=== PATIENT | female | born 1950 | race Hispanic/Latino ===

== ENCOUNTER → 2020-08-22 | Outpatient (CLI) | payer OTHER | END | disposition home or self-care (01) | LOC: SHCH 11:30 | PROVIDERS: ATTEND Internal Medicine | DX: R01.1 Cardiac murmur, unspecified (principal) | CPT/HCPCS: 93306; 93356 ==

== ENCOUNTER → 2021-07-29 | Outpatient (CLI) | payer OTHER | END | disposition home or self-care (01) | LOC: SHCH 08:21 | PROVIDERS: ATTEND Internal Medicine | DX: I08.3 Combined rheumatic disorders of mitral, aortic and tricuspid valves (principal); I11.9 Hypertensive heart disease without heart failure; E78.5 Hyperlipidemia, unspecified | CPT/HCPCS: 93306 ==

== ENCOUNTER → 2022-08-05 | Outpatient (CLI) | payer OTHER | END | disposition home or self-care (01) | LOC: SHCH 08:37 | PROVIDERS: ATTEND Internal Medicine | DX: I35.8 Other nonrheumatic aortic valve disorders (principal); I11.9 Hypertensive heart disease without heart failure; E78.5 Hyperlipidemia, unspecified | CPT/HCPCS: 93306 ==

== ENCOUNTER → 2024-07-18 | Outpatient (CLI) | payer OTHER ==
[~2024-07-18] MED LIST: IOHEXOL 350 MG/ML 100ML INFUS..BTL IV ONE
--- NOTE | 2024-07-18 13:30 | HMCIMG ---
CT OF THE CHEST WITH CONTRAST- CT Cardiac Angio co-interpretation This is done as part of the CT cardiac angiogram study. The interpretation of the coronary arteries will be done by vocational adviser in a separate report. History: over-read Comparison: none CT Dose Index (CTDI): 77.90 mGy Dose Length Product (DLP): 493.40 total mGy PROTOCOL: Examination is done at 2.5 millimeter volumetric acquisition after contrast administration with Isovue 370, 100 cc IV, without complications. Photography is done at 5 millimeter thick intervals for the thorax. The examination begins above the heart and therefore the lung apices are incompletely included. The rest of the left lung is included but the right lung is only included up to its middle third. The periphery of the right lung is not included in the study. FINDINGS: The visualized part of the airway is preserved. The bony and soft tissue structures of the chest wall are unremarkable. The aorta is unremarkable. No mediastinal lymphadenopathy is seen. The lung windows demonstrate no worrisome pulmonary nodules, masses or infiltrates. There is no evidence of pulmonary embolism in the visualized lung segments. The upper abdominal views are unremarkable. Impression: No significant abnormalities identified.
== END | disposition home or self-care (01) ==
LOC: RAH 09:44
PROVIDERS: ATTEND Student in an Organized Health Care Education/Training Program
DX: I08.3 Combined rheumatic disorders of mitral, aortic and tricuspid valves (principal); R07.9 Chest pain, unspecified
CPT/HCPCS: 93306; 75574; Q9967

== ENCOUNTER → 2024-08-08 | Outpatient (CLI) | payer OTHER ==
--- NOTE | 2024-08-23 09:24 | HMCSR ---
APPROVED REPORT Bilateral Lower Extremity Venous Study for DVT., Venous Competence. Indications I11.9 Vein Imaging CFV (R): Normal flow, augmentation and compression. No evidence of DVT. 10.2mm 400ms of DVR. SFJ (R): Normal flow, augmentation and compression. No evidence of DVT. FEM (R): Normal flow, augmentation and compression. No evidence of DVT. POP (R): Normal flow, augmentation and compression. No evidence of DVT. DFV (R): Normal flow, augmentation and compression. No evidence of DVT. PTV (R): Normal flow, augmentation and compression. No evidence of DVT. Peroneals (R): Normal flow, augmentation and compression. No evidence of DVT. CFV (L): Normal flow, augmentation and compression. No evidence of DVT. 11.3mm 289ms of DVR. SFJ (L): Normal flow, augmentation and compression. No evidence of DVT. FEM (L): Normal flow, augmentation and compression. No evidence of DVT. POP (L): Normal flow, augmentation and compression. No evidence of DVT. DFV (L): Normal flow, augmentation and compression. No evidence of DVT. PTV (L): Normal flow, augmentation and compression. No evidence of DVT. Peroneals (L): Normal flow, augmentation and compression. No evidence of DVT. Technologist Impression Negative for DVT. No significant deep vein reflux seen. No superficial venous insufficiency seen RGSV junction 5.5mm 217ms thigh 2.5mm 0.0ms knee 2.9mm 0.0ms calf 2.5mm 0.0ms RSSV prox 2.3mm 0.0ms mid 2.0mm 0.0ms LGSV junction 3.9mm 328ms thigh 3.2mm 0.0ms knee 2.7mm 0.0ms calf 1.8mm 0.0ms LSSV prox 1.9mm 0.0ms mid 1.4mm 0.0ms Conclusion No DVTs observed. Conclusion No DVTs observed.
--- NOTE | 2024-08-23 09:25 | HMCSR ---
APPROVED REPORT Laterality: Bilateral Indications I11.9 VELOCITY AND DOPPLER WAVEFORM ANALYSIS Ext Iliac Art. (R)cm/sec, Ext Iliac Art. (L) cm/sec, SUPPLY CHAIN SPECIALIST (R) 142.2cm/sec, Triphasic, SUPPLY CHAIN SPECIALIST (L) 123.9cm/sec, Triphasic, Prof Fem Art. (R) 70.0cm/sec, Triphasic, Prof Fem Art. (L) 76.3cm/sec, Biphasic, Fem Art Prox. (R) 100.5cm/sec, Triphasic, Fem Art Prox. (L) 99.6cm/sec, Biphasic, Fem Art Mid. (R) 79.0cm/sec, Biphasic, Fem Art Mid. (L) 107.7cm/sec, Biphasic, Fem Art Dist (R) 87.9cm/sec, Biphasic, Fem Art Dist. (L) 66.1cm/sec, Biphasic, Pop Art(AK) (R) 56.6cm/sec, Biphasic, Pop Art (AK) (L) 72.6cm/sec, Biphasic, Pop Art (Fossa)(R) 62.8cm/sec, Biphasic, Pop Art (Fossa) (L) 72.6cm/sec, Biphasic, Pop Art(BK) (R) 86.5cm/sec, Biphasic, Pop Art (BK) (L) 75.9cm/sec, Biphasic, MIXING HOUSE OPERATOR Dist. (R) 127.0cm/sec, Triphasic, MIXING HOUSE OPERATOR Dist. (L) 106.5cm/sec, Triphasic, Per Art Dist. (R) 79.9cm/sec, Biphasic, Per Art Dist. (L) 58.0cm/sec, Biphasic, SHARRON Dist. (R) 63.6cm/sec, Biphasic, SHARRON Dist. (L) 80.7cm/sec, Biphasic, Technologist Impression No evidence of significant arterial insufficiency of bilateral lower extremities. Multiphasic waveforms seen in the bilateral lower extremities. Conclusion No hemodynamically significant stenosis over LE observed. Conclusion No hemodynamically significant stenosis over LE observed.
== END | disposition home or self-care (01) ==
LOC: SHCH 13:54
PROVIDERS: ATTEND Student in an Organized Health Care Education/Training Program
DX: I70.203 Unspecified atherosclerosis of native arteries of extremities, bilateral legs (principal); I35.0 Nonrheumatic aortic (valve) stenosis; I11.9 Hypertensive heart disease without heart failure; M79.605 Pain in left leg; M79.604 Pain in right leg
CPT/HCPCS: 93925; 93970

== ENCOUNTER → 2024-08-19 | Outpatient (CLI) | payer OTHER ==
[2024-08-19 12:20] LABS: ALBUMIN 3.8 g/dL (3.5-5.0); BILIRUBIN,TOTAL 0.5 mg/dL (0.2-1.0); CREATININE 0.8 mg/dL (0.5-1.0); POTASSIUM 3.7 mmol/L (3.5-5.1); TOTAL PROTEIN, SERUM 7.7 g/dL (6.0-8.3)
[2024-08-19 12:36] LABS: HEMOGLOBIN A1C 5.7 % (4.0-6.0)
== END | disposition home or self-care (01) ==
LOC: LAB 08:09
PROVIDERS: ATTEND Student in an Organized Health Care Education/Training Program
DX: I11.9 Hypertensive heart disease without heart failure (principal); E78.5 Hyperlipidemia, unspecified; R06.09 Other forms of dyspnea; I35.0 Nonrheumatic aortic (valve) stenosis; R07.9 Chest pain, unspecified; R20.0 Anesthesia of skin; Z79.899 Other long term (current) drug therapy
CPT/HCPCS: 36415; 80053; 80061; 83036